=== PATIENT | male | born 2000 | race Caucasian/White ===

== ENCOUNTER 2024-02-11 00:39 | Emergency (ER) | payer OTHER ==
[~2024-02-11] VITALS: Ht 175.3 cm; Wt 72.6 kg
[~2024-02-11 00:39] MED LIST: ONDANSETRON ODT4 MG PO
[2024-02-11 00:50] VITALS: O2SAT 97
[2024-02-11] MEDS: TETANUS/DIPHTHERIA TOX ADULT 0.5 ML SYR IM ONE (01:04)
[2024-02-11] MEDS ORDERED: TETANUS/DIPHTHERIA TOX ADULT 0.5 ML SYR ONE (01:06)
[2024-02-11] MEDS ORDERED: IBUPROFEN 600 MG TAB ONE (01:17)
[2024-02-11] MEDS ORDERED: LIDOCAINE HCL 1% LOCAL INJ 20 ML VIAL ONE (01:18)
[2024-02-11] MEDS: IBUPROFEN 600 MG TAB PO STA (01:31)
[2024-02-11] MEDS ORDERED: BACITRACIN ZINC 0.9GM TP ONE (02:02)
[2024-02-11] MEDS: BACITRACIN ZINC 0.9GM TP ONE (02:05)
== END 2024-02-11 02:33 | disposition home or self-care (01) ==
LOC: FSED 00:43
DX: S61.011A Laceration without foreign body of right thumb without damage to nail, initial encounter (principal); W26.0XXA Contact with knife, initial encounter; Y99.0 Civilian activity done for income or pay; F41.9 Anxiety disorder, unspecified
CPT/HCPCS: 90471; 90714; 99283; J2001